=== PATIENT | male | born 1980 | race Caucasian/White ===

== ENCOUNTER 2018-03-04 10:27 | Emergency (ER) | payer SELFPAY ==
[~2018-03-04] VITALS: Ht 203.2 cm; Wt 86.6 kg
[~2018-03-04 10:27] MED LIST: COUMADIN PO; COUMADIN10 MG PO; COUMADIN2.5 MG PO; COUMADIN5 MG PO; FLEXERIL10 MG PO; FOLIC ACID1 MG PO; IRON; LASIX20 MG PO; LOPRESSOR100 M1 PO; LOPRESSOR50 MG PO; MICRO-K10 ME2 PO; MS CONTIN,ORAMO30 MG PO; NORCO 5/3251 TABLET PO; PHENERGAN-CODE120 ML PO; PRILOSEC40 MG PO
[2018-03-04 11:08] LABS: BASOPHIL (%) 0.7 % (0-1); BASOPHIL COUNT 0.1 K/uL (0-0.1); EOSINOPHIL (%) 0.9 % (0-5); EOSINOPHIL COUNT 0.1 K/uL (0-0.3); HEMATOCRIT 33.6 % (38.0-50.0); HEMOGLOBIN 11.1 G/DL (12.5-16.6); IMMATURE GRANULOCYTE (%) 0.5 % (0.0-0.7); LYMPHOCYTE (%) 25.4 % (15-42); LYMPHOCYTE COUNT 1.9 K/uL (1.0-2.8); MCH 27.1 PG (29.0-34.0); MCV 82.2 FL (86-99); MONOCYTE (%) 5.3 % (3-12); MONOCYTE COUNT 0.4 K/uL (0-0.8); NEUTROPHIL (%) 67.2 % (45-76); PLATELET COUNT 232 K/uL (156-360); RBC DIS.WIDTH-SD 45.1 % (39-53); RED BLOOD COUNT 4.09 M/uL (4.00-5.50); WHITE BLOOD COUNT 7.4 K/uL (4.1-10.2)
[2018-03-04 11:17] LABS: INTER. NORMALIZED RATIO 1.8
[2018-03-04 11:19] LABS: PTT 31.2 SEC (25-37)
[2018-03-04 11:44] LABS: ALBUMIN 3.6 G/DL (3.2-4.8); ALKALINE PHOSPHATASE 68 IU/L (3-129); ALT (GPT) 15 IU/L (3-49); AST (GOT) 21 IU/L (2-34); CHLORIDE 101 MEQ/L (99-109); CREATININE 1.1 MG/DL (0.6-1.3); GFR ESTIMATE (CALCULATED) > 59 mL/min/ (58.99-99999); GLUCOSE 160 mg/dL (70-99); MAGNESIUM 2.3 mg/dl (1.3-2.7); POTASSIUM 3.5 MEQ/L (3.7-5.4); SODIUM 134 MEQ/L (136-147); TOTAL BILIRUBIN 0.5 MG/DL (0.0-1.0); UREA NITROGEN (BUN) 15 mg/dL (9-23)
[2018-03-04 14:22] VITALS: BP 132/91
== END 2018-03-04 14:23 | disposition home or self-care (01) ==
LOC: EME 10:27
PROVIDERS: Physician Assistant
DX: I77.1 Stricture of artery (principal); Z79.01 Long term (current) use of anticoagulants; Z95.2 Presence of prosthetic heart valve; Z88.8 Allergy status to other drugs, medicaments and biological substances
CPT/HCPCS: 80053; 83735; 85025; 85610; 85730; 93926; 93971; 99281; 99284

== ENCOUNTER 2018-03-24 10:20 | Inpatient (IN) | payer OTHER ==
[~2018-03-24] VITALS: Ht 203.2 cm; Wt 84.0 kg
[2018-03-24 11:54] LABS: BASOPHIL (%) 0.8 % (0-1); BASOPHIL COUNT 0.1 K/uL (0-0.1); EOSINOPHIL (%) 0.8 % (0-5); EOSINOPHIL COUNT 0.1 K/uL (0-0.3); HEMATOCRIT 25.3 % (38.0-50.0); HEMOGLOBIN 8.4 G/DL (12.5-16.6); IMMATURE GRANULOCYTE (%) 0.6 % (0.0-0.7); LYMPHOCYTE (%) 31.9 % (15-42); MCH 26.1 PG (29.0-34.0); MCHC 33.2 G/DL (30.0-36.0); MCV 78.6 FL (86-99); MONOCYTE COUNT 0.6 K/uL (0-0.8); NEUTROPHIL (%) 56.9 % (45-76); NEUTROPHIL COUNT 3.6 K/uL (1.8-6.4); PLATELET COUNT 248 K/uL (156-360); RBC DIS.WIDTH-CV 15.8 % (11.8-14.6); RBC DIS.WIDTH-SD 44.5 % (39-53); RED BLOOD COUNT 3.22 M/uL (4.00-5.50); WHITE BLOOD COUNT 6.3 K/uL (4.1-10.2)
[2018-03-24 12:06] LABS: CHLORIDE 99 mEq/L (99-109); POTASSIUM 3.2 mEq/L (3.7-5.4); SODIUM 131 mEq/L (136-147)
[2018-03-24 12:08] LABS: GLUCOSE 127 mg/dL (70-99)
[2018-03-24 12:10] LABS: INTER. NORMALIZED RATIO 10.9; PTT 67.3 SEC (25-37)
[2018-03-24 12:12] LABS: CREATININE 0.9 mg/dL (0.6-1.3); GFR ESTIMATE (CALCULATED) > 59 mL/min/ (58.99-99999)
[2018-03-24 12:13] LABS: UREA NITROGEN (BUN) 17 mg/dL (9-23)
[2018-03-24 12:16] LABS: TROP-I INTERPRETATION NEGATIVE; TROPONIN-I 0.02 ng/mL (0.0-0.30)
[2018-03-24] MEDS ORDERED: CILOSTAZOL100 MG PO (14:33)
[2018-03-24] MEDS ORDERED: COUMADIN10 MG PO (14:33)
[2018-03-24 16:21] LABS: ALBUMIN 3.2 g/dL (3.2-4.8)
[2018-03-24 16:24] LABS: TOTAL PROTEIN 7.1 g/dL (6.4-8.3)
[2018-03-24 16:26] LABS: TOTAL BILIRUBIN 1.3 mg/dL (0.0-1.0)
[2018-03-24 16:27] LABS: ALKALINE PHOSPHATASE 65 IU/L (3-129)
[2018-03-24 16:29] LABS: AST (GOT) 33 IU/L (2-34)
[2018-03-24 16:30] LABS: ALT (GPT) 14 IU/L (3-49); DIRECT BILIRUBIN 0.4 mg/dL (0.0-0.3)
[2018-03-24 18:50] LABS: HEMOGLOBIN 10.1 G/DL (12.5-16.6); MCV 81.4 FL (86-99)
[2018-03-24 19:43] VITALS: BP 109/65
[2018-03-24 23:07] VITALS: BP 116/69
[2018-03-25] VITALS (7 sets, daily range): BP systolic 105–121; BP diastolic 61–75
[2018-03-25 00:51] LABS: HEMATOCRIT 23.6 % (38.0-50.0); HEMOGLOBIN 7.8 G/DL (12.5-16.6); MCV 78.9 FL (86-99)
[2018-03-25 06:26] LABS: APPEARANCE CLEAR ((CLEAR)); BILIRUBIN NEGATIVE; BLOOD SMALL; COLOR YELLOW ((YELLOW)); GLUCOSE (STRIP) NEGATIVE; KETONES NEGATIVE; LEUKOCYTES NEGATIVE; NITRITE NEGATIVE; PROTEIN (STRIP) NEGATIVE; SPECIFIC GRAVITY 1.059 (1.000-1.030); UROBILINOGEN 0.2 MG/DL (0.2-1.0)
[2018-03-25 06:41] LABS: BACTERIA NONE SEEN /HPF; EPITHELIAL CELLS RARE /HPF; MUCUS NONE SEEN /LPF; RED BLOOD CELLS 0-5 /HPF (0-5); UCUL ADDED? NO; WHITE BLOOD CELLS 0-5 /HPF (0-5)
[2018-03-25 06:56] LABS: BENZODIAZEPINES, URINE SCREEN Negative (200 ng/mL)
[2018-03-25 07:01] LABS: HEMATOCRIT 22.6 % (38.0-50.0); HEMOGLOBIN 7.5 G/DL (12.5-16.6); MCH 26.2 PG (29.0-34.0); MCHC 33.2 G/DL (30.0-36.0); PLATELET COUNT 213 K/uL (156-360); RBC DIS.WIDTH-SD 45.7 % (39-53); RED BLOOD COUNT 2.86 M/uL (4.00-5.50); WHITE BLOOD COUNT 3.7 K/uL (4.1-10.2)
[2018-03-25 07:13] LABS: INTER. NORMALIZED RATIO 9.2
[2018-03-25 07:48] LABS: ALBUMIN 2.8 G/DL (3.2-4.8); ALKALINE PHOSPHATASE 51 IU/L (3-129); ALT (GPT) 11 IU/L (3-49); AST (GOT) 24 IU/L (2-34); CHLORIDE 102 MEQ/L (99-109); CREATININE 0.6 MG/DL (0.6-1.3); GFR ESTIMATE (CALCULATED) > 59 mL/min/ (58.99-99999); GLUCOSE 109 mg/dL (70-99); SODIUM 132 MEQ/L (136-147); TOTAL BILIRUBIN 0.5 MG/DL (0.0-1.0); TOTAL PROTEIN 5.9 G/DL (6.4-8.3); UREA NITROGEN (BUN) 13 mg/dL (9-23)
[2018-03-25 07:49] LABS: POTASSIUM 4.1 MEQ/L (3.7-5.4)
[2018-03-25 12:46] LABS: HEMOGLOBIN 8.3 G/DL (12.5-16.6); MCV 79.5 FL (86-99)
[2018-03-25 18:43] LABS: HEMATOCRIT 25.6 % (38.0-50.0); HEMOGLOBIN 8.3 G/DL (12.5-16.6)
[2018-03-25 20:36] LABS: INTER. NORMALIZED RATIO 3.4
[2018-03-26 00:50] LABS: HEMATOCRIT 26.1 % (38.0-50.0); HEMOGLOBIN 8.6 G/DL (12.5-16.6); MCV 79.1 FL (86-99)
[2018-03-26 05:30] LABS: HEMOGLOBIN 8.6 G/DL (12.5-16.6); MCH 26.1 PG (29.0-34.0); MCHC 33.1 G/DL (30.0-36.0); RBC DIS.WIDTH-SD 45.8 % (39-53); RED BLOOD COUNT 3.29 M/uL (4.00-5.50); WHITE BLOOD COUNT 4.1 K/uL (4.1-10.2)
[2018-03-26 05:58] LABS: CHLORIDE 104 mEq/L (99-109); POTASSIUM 4.1 mEq/L (3.7-5.4); SODIUM 135 mEq/L (136-147)
[2018-03-26 05:59] LABS: PLATELET COUNT 284 K/uL (156-360)
[2018-03-26 06:00] LABS: GLUCOSE 99 mg/dL (70-99)
[2018-03-26 06:04] LABS: CREATININE 0.8 mg/dL (0.6-1.3); GFR ESTIMATE (CALCULATED) > 59 mL/min/ (58.99-99999)
[2018-03-26 06:05] LABS: UREA NITROGEN (BUN) 8 mg/dL (9-23)
[2018-03-26 06:36] LABS: ABS NEUTROPHIL COUNT 1.9; ANISOCYTOSIS 2+; BAND NEUTROPHILS 0.9 % (0-8.0); EOSINOPHIL ABS CT 0.1; EOSINOPHILS 1.7 % (0-5.0); HYPOCHROMASIA 1+; LYMPHOCYTES 46.1 % (15.0-45.0); METAMYELOCYTES 0.9 %; MICROCYTOSIS 1+; MONOCYTES 3.5 % (0-9.0); MYELOCYTES 1.7 %; NUCLEATED RBC'S 1.7; OVALOCYTES 1+; PLAT.SUFFICIENCY ADEQUATE; POLYCHROMASIA 2+; SEG.NEUTROPHILS 45.2 % (46.0-76.0)
[2018-03-26 08:00] VITALS: BP 121/73
[2018-03-26 10:15] LABS: HEPATITIS B SURFACE ANTIGEN Nonreactive
[2018-03-26 10:16] LABS: HIV-1/2 AB/AG COMBO Nonreactive
[2018-03-26 10:25] LABS: HEPATITIS C ANTIBODY REACTIVE
[2018-03-26 12:00] LABS: HEMATOCRIT 29.1 % (38.0-50.0); HEMOGLOBIN 9.4 G/DL (12.5-16.6); MCV 80.2 FL (86-99)
[2018-03-26 12:13] LABS: PTT 28.6 SEC (25-37)
[2018-03-26 12:21] LABS: INTER. NORMALIZED RATIO 1.3
[2018-03-26 12:23] VITALS: BP 113/75
[2018-03-26 17:05] VITALS: BP 135/72
[2018-03-26 18:41] VITALS: BP 135/72
== END 2018-03-26 20:28 | disposition short-term general hospital (02) | DRG 314 ==
LOC: EME 10:20 → 4EAST 15:32 → EDOF 15:32 → ENRESERV 15:43 → 5SOUTH 17:27 → ENRESERV 03-25 07:39 → 5SOUTH 03-25 07:39 → ENRESERV 03-25 07:57 → 4EAST 03-25 08:56 → ENPENDDIS 03-26 18:30 → 4EAST 03-26 20:28
PROVIDERS: Emergency Medicine; Hospitalist; Internal Medicine; Internal Medicine Hematology & Oncology; Internal Medicine Infectious Disease; Physician Assistant; Physician Assistant Surgical
DX: T82.6XXA Infection and inflammatory reaction due to cardiac valve prosthesis, initial encounter (principal); B37.6 Candidal endocarditis; T82.867A Thrombosis due to cardiac prosthetic devices, implants and grafts, initial encounter; Y83.1 Surgical operation with implant of artificial internal device as the cause of abnormal reaction of the patient, or of later complication, without mention of misadventure at the time of the procedure; I76 Septic arterial embolism; I74.2 Embolism and thrombosis of arteries of the upper extremities; I74.3 Embolism and thrombosis of arteries of the lower extremities; I88.9 Nonspecific lymphadenitis, unspecified; B37.1 Pulmonary candidiasis; R04.2 Hemoptysis; D64.9 Anemia, unspecified; R79.1 Abnormal coagulation profile; T45.515A Adverse effect of anticoagulants, initial encounter; I27.20 Pulmonary hypertension, unspecified; I45.10 Unspecified right bundle-branch block; R63.4 Abnormal weight loss; R74.0 Nonspecific elevation of levels of transaminase and lactic acid dehydrogenase [LDH]; B19.20 Unspecified viral hepatitis C without hepatic coma; I36.1 Nonrheumatic tricuspid (valve) insufficiency; F17.210 Nicotine dependence, cigarettes, uncomplicated; Z86.718 Personal history of other venous thrombosis and embolism; Z79.01 Long term (current) use of anticoagulants; Z95.2 Presence of prosthetic heart valve; Z91.19 Patient's noncompliance with other medical treatment and regimen
CPT/HCPCS: 71045; 71275; 73201; 80048; 80053; 80076; 80306 90; 81003; 82164 90; 83605; 84145 90; 84484; 85014; 85018; 85025; 85027; 85610; 85730; 86803; 86850; 86900; 86901; 87040; 87070; 87106; 87149; 87149 59; 87186 90; 87205; 87340; 87389; 93005; 93306; 94799; 99281; 99285; J0696; J1170; J2248; J2405; J2543; J3370; J7030; J7050

== ENCOUNTER 2018-04-23 13:35 | Day surgery (SDC) | payer OTHER ==
[~2018-04-23] VITALS: Ht 203.2 cm; Wt 81.7 kg
[~2018-04-23 13:35] MED LIST changes: +CILOSTAZOL100 MG PO; +DIFLUCAN200 MG PO; +DILAUDID4 MG PO; +LOPRESSOR25 MG PO
[2018-04-23] MEDS ORDERED: PROTONIX40 MG PO (14:01)
[2018-04-23] MEDS ORDERED: TYLENOL EXTRA500 MG PO (14:03)
[2018-04-23 14:20] VITALS: BP 127/90
[2018-04-23 14:24] LABS: HEMATOCRIT 22.8 % (38.0-50.0); MCH 24.7 PG (29.0-34.0); MCHC 31.6 G/DL (30.0-36.0); MCV 78.1 FL (86-99); PLATELET COUNT 305 K/uL (156-360); RBC DIS.WIDTH-CV 17.7 % (11.8-14.6); RBC DIS.WIDTH-SD 50.4 % (39-53); RED BLOOD COUNT 2.92 M/uL (4.00-5.50); WHITE BLOOD COUNT 6.9 K/uL (4.1-10.2)
[2018-04-23 14:25] LABS: HEMOGLOBIN 7.2 G/DL (12.5-16.6)
[2018-04-23 14:30] LABS: CHLORIDE 104 mEq/L (99-109); POTASSIUM 4.1 mEq/L (3.7-5.4); SODIUM 136 mEq/L (136-147)
[2018-04-23 14:32] LABS: GLUCOSE 97 mg/dL (70-99)
[2018-04-23 14:36] LABS: CREATININE 0.9 mg/dL (0.6-1.3); GFR ESTIMATE (CALCULATED) > 59 mL/min/ (58.99-99999)
[2018-04-23 14:37] LABS: UREA NITROGEN (BUN) 9 mg/dL (9-23)
[2018-04-23 14:38] LABS: INTER. NORMALIZED RATIO 3.7
[2018-04-23 20:31] VITALS: BP 131/88
[2018-04-24] VITALS (12 sets, daily range): BP systolic 113–158; BP diastolic 70–86
[2018-04-24 06:19] LABS: INTER. NORMALIZED RATIO 3.6
[2018-04-24 06:23] LABS: BASOPHIL (%) 0.5 % (0-1); EOSINOPHIL (%) 3.4 % (0-5); EOSINOPHIL COUNT 0.2 K/uL (0-0.3); HEMATOCRIT 19.8 % (38.0-50.0); IMMATURE GRANULOCYTE (%) 0.5 % (0.0-0.7); LYMPHOCYTE (%) 26.9 % (15-42); LYMPHOCYTE COUNT 1.6 K/uL (1.0-2.8); MCH 23.9 PG (29.0-34.0); MCHC 30.3 G/DL (30.0-36.0); MCV 78.9 FL (86-99); MONOCYTE (%) 6.6 % (3-12); MONOCYTE COUNT 0.4 K/uL (0-0.8); NEUTROPHIL (%) 62.1 % (45-76); NEUTROPHIL COUNT 3.7 K/uL (1.8-6.4); PLATELET COUNT 262 K/uL (156-360); RBC DIS.WIDTH-CV 17.7 % (11.8-14.6); RBC DIS.WIDTH-SD 51.2 % (39-53); RED BLOOD COUNT 2.51 M/uL (4.00-5.50); WHITE BLOOD COUNT 5.9 K/uL (4.1-10.2)
== END 2018-04-24 13:59 | disposition home or self-care (01) ==
LOC: SDC 13:35 → 2EAST 17:50 → 2SOUTH 17:50 → ENRESERV 17:52 → 2EAST 20:17
PROVIDERS: Surgery
PROC: 03C83ZZ Extirpation of Matter from Left Brachial Artery, Percutaneous Approach (ICD-10-PCS; principal; 2018-04-23)
DX: I74.2 Embolism and thrombosis of arteries of the upper extremities (principal); I87.8 Other specified disorders of veins; D64.9 Anemia, unspecified; I10 Essential (primary) hypertension; I45.10 Unspecified right bundle-branch block; F17.200 Nicotine dependence, unspecified, uncomplicated; Z79.01 Long term (current) use of anticoagulants
CPT/HCPCS: 71046; 80048; 85025; 85027; 85610; 86850; 86900; 86901; 86920; 93005; C1725; C1768; G0378; J0690; J1644; J2250; J3010; P9016